=== PATIENT | female | born 1945 | race Caucasian/White ===

== ENCOUNTER 2025-08-28 18:24 | Inpatient (IN) | payer MEDICARE, OTHER, SELFPAY ==
[2025-08-28] VITALS (18 sets, daily range): BP systolic 90–124; BP diastolic 66–109
[2025-08-28 14:03] LABS: Hematocrit 33.9 % (37.0-47.0); Hemoglobin 11.5 g/dL (12.0-16.0); Mean Corp Hgb Conc. 33.9 g/dL (33.0-37.0); Mean Corpuscular Volume 89.0 fL (81.0-99.0); Nucleated Red Blood Cells % 0 %; Platelet Count 281 10^3/uL (130-400); Red Cell Dist. Width 14.3 % (11.5-14.5)
--- NOTE | 2025-08-28 14:16 | ED.GENMED ---
History of Present Illness
General
Chief Complaint: Chest Pain
Source: patient and ambulance crew
Exam Limitations: none
Time Seen by Provider: 08/28/25 14:16
Nursing documentation reviewed up to this point in time: agreed with
History of Present Illness
History of Present Illness:
Note:
CHIEF COMPLAINT(S)
Sudden chest pain.
HISTORY OF PRESENT ILLNESS
The patient is an 80-year-old female who presents with sudden onset chest pain. The exact time of onset was not specified prior to the patients arrival in the emergency department. The patient has a history of atrial fibrillation and is currently
taking apixaban (Eliquis) for anticoagulation. She reported no history of stenting or catheterization, although she mentioned undergoing a calcium score previously. She denies any known history of blood clots. However, artist manager surmised that a blood
clot might have caused the chest pain, although there is no clinical confirmation of this. The patient mentioned undergoing knee replacement surgery in the past and is currently taking an antibiotic, nitrofurantoin (Macrobid), for a urinary tract
infection. She has been on Macrobid for approximately three to four days. A prior evaluation indicated elevated white blood cell count, possibly linked to the urinary tract infection.
PAST MEDICAL AND SURGICAL HISTORY
The patient underwent knee replacement surgery, although the specific timing and further surgical history were not detailed.
CHRONIC MEDICAL CONDITIONS SIGNIFICANTLY AFFECTING CARE
- Atrial fibrillation
MEDICATIONS
- Apixaban (Eliquis) for atrial fibrillation
- Nitrofurantoin (Macrobid) for urinary tract infection
REVIEW OF SYSTEMS
- Cardiovascular: Sudden chest pain
- Genitourinary: History of urinary tract infection, on nitrofurantoin (Macrobid), previously elevated white blood cell count
PHYSICAL EXAM
General: Alert, no acute distress.
Skin: Warm, dry.
Head: Normocephalic, atraumatic.
Neck: Supple, trachea midline.
Eyes, Ears, Nose, Mouth and Throat: Oral mucosa moist.
Cardiovascular: Normal peripheral perfusion, No edema.
Respiratory: Respirations are non-labored.
Gastrointestinal: Abdomen nondistended.
Back: Normal range of motion, Normal alignment.
Musculoskeletal: Normal range of motion, normal strength.
Neurological: Alert and oriented to person, place, time, and situation, No focal neurological deficit observed.
Psychiatric: Cooperative, appropriate mood & affect.
PROBLEM LIST
Acute:
- Sudden chest pain
- Urinary tract infection
- Elevated white blood cell count
Chronic:
- Atrial fibrillation
PLAN
- Perform blood work, including a troponin level, to assess cardiac status.
- Conduct a chest X-ray to evaluate potential cardiac or pulmonary causes of chest pain.
- Administer medication to control the patient�s heart rate concerning atrial fibrillation.
- Complete an ultrasound of the leg to check for potential deep vein thrombosis, especially given the knee replacement history.
- Consider hospital admission for further observation and management of atrial fibrillation and to rule out other potential causes of chest pain.
DIFFERENTIAL DIAGNOSIS
The Differential Diagnosis includes, in no particular order and is not limited to:
- Myocardial infarction
- Pulmonary embolism
- Atrial fibrillation with rapid ventricular response
- Costochondritis
- Musculoskeletal chest pain
- Pneumonia
- Pleuritis
- Anxiety-related chest pain
- Gastroesophageal reflux disease (GERD)
- Pericarditis
EKG
My independent EKG interpretation is:
- Time of EKAugust 28, 2025
- Rhythm: Atrial fibrillation with rapid ventricular response
- Heart Rate: 132 bpm
- White: Left axis deviation
- Abnormalities: T wave abnormality in inferior leads
Disposition:
SUMMARY OF ENCOUNTER
The patient was seen in the emergency department for sudden onset chest pain. Initial evaluation suggested rapid atrial fibrillation and left lower lobe pneumonia with mild troponin elevation. Atrial fibrillation was diagnosed with independent EKG
showing rapid ventricular response. Initially, heparin was considered for anticoagulation but was held due to the patients report of rectal bleeding. Antibiotic treatment was started with ceftriaxone (Rocephin) and azithromycin in accordance with
pneumonia management guidelines. Diltiazem drip was initiated for rate control of rapid atrial fibrillation. The hospitalist was consulted for further inpatient management.
DISPOSITION
Admit for further observation and management.
ASSESSMENT
The patient is experiencing rapid atrial fibrillation and left lower lobe pneumonia, which requires hospitalization for further management and observation due to potential complications related to elevated troponin levels and patients age.
EMERGENCY TREATMENTS ADMINISTERED
- Ceftriaxone (Rocephin)
- Azithromycin
- Diltiazem drip for rapid atrial fibrillation rate control
MANAGEMENT OF THE PATIENTS CARE WAS DISCUSSED WITH
The hospitalist team was consulted to manage the patients care upon admission to the hospital.
PLAN
Admit to the hospital for ongoing management of rapid atrial fibrillation and left lower lobe pneumonia. Continue monitoring troponin levels and potential bleeding risk before initiating anticoagulation therapy. Administer appropriate antibiotics
and maintain vital stability.
INDEPENDENT REVIEW OF LABS AND INTERPRETATION OF TESTS
My independent EKG interpretation is atrial fibrillation with rapid ventricular response, elevated heart rate of 132 bpm, left axis deviation, and T wave abnormality in inferior leads.
MEDICATION RECONCILIATION
- Heparin was considered but withheld due to patient-reported rectal bleeding.
MEDICAL DECISION MAKING
- Chronic conditions affecting care: Atrial fibrillation, Elevated troponin.
- Differential Diagnosis includes:
- Myocardial infarction
- Pulmonary embolism
- Atrial fibrillation with rapid ventricular response
- Pneumonia
- Data:
- Category 1: My independent EKG interpretation.
- Category 3: Management of care discussed with the hospitalist.
- Risk: Consideration of Admission/Observation due to atrial fibrillation, elevated troponin, and pneumonia. Admission was necessary due to the complexity of the present conditions and the potential risk for complications.
DIAGNOSIS
- I48.91: Unspecified atrial fibrillation
- J18.9: Pneumonia, unspecified organism
Phy Exam
Physical Exam
Physical Exam:
.
Scores
Heart Score for Chest Pain Patients
STEMI patient?: No
History: Slightly or Non-Suspicious
ECG: Nonspecific Repolarization
Age: >/= 65 years
Risk Factors: 1 or 2 Risk Factors
Troponin: >1 - <3 x Normal Limit
Heart Score for Chest Pain Patients: 5
Heart Score Risk: 20.3% MACE over next 6 weeks
Course
Orders/Labs/Results
Orders:
Orders
08/28/25 13:44
Electrocardiogram (*1) Urgent
Reason for Study: Chest Pain
EKG- Treatment ONCE
08/28/25 13:53
Complete Blood Count/With Diff Urgent
Comprehensive Metabolic Panel Urgent
Troponin I Urgent
08/28/25 14:35
Diltiazem 125 mg/125 ml Nss [Cardizem] 125 mg in 125 ml IV NOW
Initial dose in mg/hr, then titrate:: 5
Titrate to keep:: Heart rate 80-100 bpm
Titrate by mg/hr:: 5 mg/hr
Frequency of titrations (minutes):: 15
Maximum dose in mg/hr:: 15
Diltiazem HCl [Cardizem] 5 mg IV NOW STA
08/28/25 14:37
CR Chest Portable - 1 View Urgent
Comment:
Reason For Exam: chest pain
Reason Study Needs to be Portable: Patient Unstable
08/28/25 14:41
US Legs, Right [US Periph Venous LOWER Ext RT] Urgent
Comment:
Reason For Exam: right leg swelling, recent knee surgery
08/28/25 Dinner
Regular
08/28/25 15:29
D-Dimer Urgent
PTT Urgent
Prothrombin Time Urgent
08/28/25 16:09
CT Chest PE Study Urgent
Comment:
Reason For Exam: chest pain, ddimer elevated
08/28/25 17:12
Heparin 4,000 units IV NOW STA
Nursing to Place Non Medication Order As Directed
Physician Order: PTT 6 hours after initial start of Heparin infusion
08/28/25 17:51
UA Reflex to Culture [Urinalysis Reflex To Culture] Routine
08/28/25 17:52
Admit/Transfer Patient As Directed
Co-Sign Provider:
Level of Care: Inpatient admission
Assign to:: IVU
Physician / Group: Bryce
Diagnosis: New afib with chest pain;possible pneumonia
Reason for Hospitalization: See progress note
Expected length of stay greater than two midnights?: Yes
ELOS- Estimated Length of Stay in days: 4
I certify the patient meets the requirements for IP care: Yes
PRN Pain Medication Management As Directed
May give lesser potent ordered pain med per pt: Yes
preference::
Protocol:: Medication orders for pain may be administered in a
manner that supports deferring to patient preference
when the pt is:
- Requesting an ordered lesser potent pain medication.
Least to most potent pain medications are defined
as: acetaminophen < NSAID < tramadol < opioids
(morphine, oxycodone, hydromorphone).
- Requesting a lesser dose of the same medication IF
ORDERED.
- Requesting a less intrusive route of administration
if both routes are prescribed by the provider (PO <
IV).
08/28/25 17:54
Code Status As Directed
Resuscitation Status: Full Code
08/28/25 18:08
COVID-19 Antigen Routine
Source: Nasal Swab
Blood Culture Q30M
Source: Blood/Venous
Specimen Description:
Influenza A+B Rapid Molecular Routine
Source: Nasal Swab
Specimen Description:
08/28/25 18:30
Blood Culture Q30M
Source: Blood/Venous
Specimen Description:
08/28/25 20:00
CefTRIAXone [Rocephin] 1,000 mg IV Q24H
08/28/25 20:25
Acetaminophen [Tylenol] 650 mg PO Q4HPRN PRN
Bisacodyl [Dulcolax] 10 mg RECTAL DAILY PRN constipation
Diltiazem 125 mg/125 ml Nss [Cardizem] 125 mg in 125 ml IV PER PROTOCOL
Currently infusing. Continue current dose and titrate:: Yes
Titrate to keep:: Heart rate 80-100 bpm
Titrate by mg/hr:: 5 mg/hr
Frequency of titrations (minutes):: 15
Maximum dose in mg/hr:: 15
Doxycycline [Vibramycin] 100 mg PO Q12
Oxycodone [Roxicodone] 5 mg PO Q4H PRN moderate pain moderate pain
Polyethylene Glycol Powder [Miralax] 17 grams PO DAILY PRN constipation
Sennosides [Senokot] 8.6 mg PO BID
08/28/25 20:25
Echo 2D MMode Color/Doppler Routine
Reason for Study: New Afib
CARDIOLOGY CONSULT Routine
Consulting Provider: Adilene Robertson
Was physician already notified: Yes
Reason for consult: Afib
Urine Osmolality Random [Osmolality, Random Urine] Routine
Urine Sodium Routine
Heparin Protocol- PTT Orders As Directed
PTT per Heparin protocol: -Obtain CBC and baseline PTT - if not already collected.
-Obtain PTT 6 hours from start of infusion. Then, every 6 hours until 2 consecutive
PTT's are therapeutic. Then, PTT Daily.
-With each rate change, obtain PTT every 6 hours until 2 consecutive PTT's are
therapeutic. Then, PTT Daily.
Activity As Directed
Activity Level: As Tolerated
Notify MD As Directed
Notify physician if: PTT is greater than or equal to 200.
Ot Eval And Treat Routine
Pt Eval And Treat Routine
Activity Level: As Tolerated
08/29/25 06:00
TSH IN AM
08/29/25 08:00
Oxybutynin Chloride [Ditropan] 5 mg PO DAILY
08/30/25 06:00
Complete Blood Count/No Diff Q2D
Comment: notify provider: Platelet count < 130,000 or decrease by 50% from baseline
09/01/25 06:00
Complete Blood Count/No Diff Q2D
Comment: notify provider: Platelet count < 130,000 or decrease by 50% from baseline
09/03/25 06:00
Complete Blood Count/No Diff Q2D
Comment: notify provider: Platelet count < 130,000 or decrease by 50% from baseline
09/05/25 06:00
Complete Blood Count/No Diff Q2D
Comment: notify provider: Platelet count < 130,000 or decrease by 50% from baseline
09/07/25 06:00
Complete Blood Count/No Diff Q2D
Comment: notify provider: Platelet count < 130,000 or decrease by 50% from baseline
09/09/25 06:00
Complete Blood Count/No Diff Q2D
Comment: notify provider: Platelet count < 130,000 or decrease by 50% from baseline
09/11/25 06:00
Complete Blood Count/No Diff Q2D
Comment: notify provider: Platelet count < 130,000 or decrease by 50% from baseline
09/13/25 06:00
Complete Blood Count/No Diff Q2D
Comment: notify provider: Platelet count < 130,000 or decrease by 50% from baseline
Abnormal Lab Results
08/28/25 08/28/25
13:53 15:29
RBC 3.81 L 10^6/uL
(4.20-5.40)
Hgb 11.5 L g/dL
(12.0-16.0)
Hct 33.9 L %
(37.0-47.0)
Abs Immat Gran (auto) 0.1 H 10^3/uL
(0-0.05)
Absolute Neuts (auto) 8.8 H 10^3/uL
(1.4-6.5)
Absolute Lymphs (auto) 0.6 L 10^3/uL
(1.2-3.4)
Absolute Monos (auto) 1.0 H 10^3/uL
(0.1-0.6)
Immature Gran % 1.0 H %
(0-0.5)
Neutrophils % 83.2 H %
(42.2-75.2)
Lymphocytes % 5.6 L %
(20.5-51.1)
PT 18.9 H Sec
(11.4-14.6)
APTT 56.0 H Sec
(23.4-35.0)
D-Dimer 1.70 H ug/mlFEU
(0.00-0.50)
Sodium 130 L mmol/L
(135-145)
Glucose 121 H mg/dl
(70-99)
Troponin I 0.161 H* ng/ml
Total Protein 5.7 L g/dl
(6.3-8.2)
Albumin 3.1 L g/dl
(3.5-5.0)
08/28/25 13:53
08/28/25 13:53
Vital Signs
Initial and Last Documented VS:
Initial Vital Signs
Temp Pulse Resp BP Pulse Ox
97.5 F 155 20 124/109 98
08/28/25 13:44 08/28/25 13:44 08/28/25 13:44 08/28/25 13:44 08/28/25 13:44
Last Documented Vital Signs
Temp Pulse Resp BP Pulse Ox
98.3 F 88 20 110/72 98
08/28/25 20:20 08/28/25 22:15 08/28/25 20:20 08/28/25 22:00 08/28/25 20:45
*Pulse Oximetry
SaO2: 98
Oxygen Mode of Delivery: Room air
Patient hypoxic: no
*Critical Care Note
Total Time (30-74mins, 75-104mins- exclusive of procedures): 35
comment:
Critical care statement: A total of 35 minutes of critical care time was provided for this patient. This includes management of unstable vital signs, evaluation of the patient at bedside, reviewing the patient's pertinent medical records, discussion
with consultants, review of old EKGs and review of pertinent medical records. This time with separate from time utilized to perform the aforementioned documented procedures
ED Attending Note
-
Portions of this chart may have been created with voice recognition software.� Occasional wrong word or��sound alike� substitutions may have occurred due to the inherent limitations of voice recognition software.
Discharge Plan
Departure
Patient Disposition: Admit
Date of Disposition: 08/28/25
Time of Disposition: 17:11
Admit to: IVU
Presentation/result/management discussed w/ accepting MD/DO: Hospitalist
Patient with high blood pressure during this ER visit?: No
Condition: Fair
Discharge Problem:
Atrial fibrillation with rapid ventricular response, Pneumonia
Interventions
Interventions:
*Risk Screen - Suicide Last Done: 08/28/25 13:44
*General Assessment Last Done: 08/28/25 13:44
*Neglect/Abuse Screening Last Done: 08/28/25 13:44
*ED COVID-19 Vaccine History Last Done: 08/28/25 14:02
*ED Influenza Vaccine History Last Done: 08/28/25 14:02
*Nursing Disposition Last Done: 08/28/25 20:00
ED- Cardiac Assessment Last Done: 08/28/25 14:02
Discharge Date and Time
Discharge Date/Time: 08/28/25 20:03
[2025-08-28 14:30] LABS: Troponin I 0.161 ng/ml
[2025-08-28 14:37] LABS: ALT (SGPT) 21 U/L (0-35); AST (SGOT) 23 U/L (14-36); Albumin 3.1 g/dl (3.5-5.0); Alkaline Phosphatase 77 U/L (38-126); Blood Urea Nitrogen 15 mg/dl (7-17); Calcium 8.6 mg/dl (8.4-10.2); Carbon Dioxide 24 mmol/L (22-30); Chloride 99 mmol/L (98-107); Estimated Creatinine Clearance 79 ml/min; Glucose 121 mg/dl (70-99); Potassium 3.9 mmol/L (3.5-5.1); Sodium 130 mmol/L (135-145); Total Protein 5.7 g/dl (6.3-8.2); eGFR > 60.00
[2025-08-28] MEDS: CARDIZEM 5 MG IV (15:35)
[2025-08-28] MEDS: CARDIZEM 125 IV (15:44)
[2025-08-28 15:45] LABS: INR 1.56; PT 18.9 Sec (11.4-14.6)
[2025-08-28 15:46] LABS: APTT 56.0 Sec (23.4-35.0)
[2025-08-28 15:49] LABS: D-Dimer 1.70 ug/mlFEU (0.00-0.50)
--- NOTE | 2025-08-28 17:59 | HPS.HSE ---
Family Physician
-
Family Physician: Arvin Yoon
Chief Complaint
-
Chest pain and shortness of breath
History of Present Illness
First visit to [facility]. She normally is healthy and does not go to hospitals.
She had a routine a right knee replacement on July 22 at [facility]. She needed a 5-day stay and then was discharged to rehab. She denies any postop complications of infection or any new acute medical issues.
She was cleared by cardiology prior to any replacement. She apparently had a high calcium score which led to echo, EKG and a stress test and then ultimately as cardiac cath a year and half ago and apparently did not need any interventions and was
told it was okay.
she had a chest pain a week or so ago but dissipated quickly but today today when she went to the bathroom to get washed up she had half an hour of left-sided chest pain where she felt short of breath and she had sweating with it. Nursing at the
rehab found her to be an irregular heartbeat sent here and we discovered she has new A-fib.
She denies any further chest pain. It was not pleuritic in nature.
In the middle of the week she felt very cold shaky and thought she had a fever. Rehab checked a urinalysis and she was told she has a UTI and was started on nitrofurantoin. She did not says she had dysuria but she had some frequency. She was put
on diapers and sometimes she is in her own urine for a while before she gets help. No prior history of UTI.
She also says in the last 2 to 3 days she was having cough and she thought she was having phlegm. No history of chronic lung disease. Denies any pneumonia history. She was sharing a room with another patient in the rehab. She can tell if her
roommate had any respiratory symptoms.
Medical History
Past Medical History
Past Medical History: Reports HTN
Past Surgical History: Reports Orthopedic (Right knee replacement last month)
Social History
Tobacco: Non-smoker
Alcohol: None
Drug: None
Living: Other (In rehab currently)
Family History
Family History: Not pertinent
Allergies / Home Medications
Allergies reflects when Allergies were last updated in [employer].
Home Medications with original date entered in [employer]
Allergy/Medication List:
Allergies
Allergy/AdvReac Type Severity Reaction Status Date / Time
No Known Allergies Allergy Verified 08/28/25 15:24
Home Medications
acetaminophen 500 mg tablet 1,000 mg PO TID 08/28/25
apixaban 2.5 mg tablet (Eliquis) 2.5 mg PO BID 08/28/25
bisacodyl 10 mg rectal suppository (Dulcolax (bisacodyl)) 10 mg AR DAILY PRN constipation 08/28/25
methocarbamol 500 mg tablet 500 mg PO Q8H PRN muscle spasms 08/28/25
nitrofurantoin monohydrate/macrocrystals 100 mg capsule (Macrobid) 100 mg PO BID 08/28/25
oxybutynin chloride 5 mg tablet 5 mg PO DAILY 08/28/25
oxycodone 5 mg tablet 5 mg PO Q4H PRN pain 08/28/25
polyethylene glycol 3350 17 gram oral powder packet 17 g PO DAILY PRN constipation 08/28/25
sennosides 8.6 mg tablet (senna) 8.6 mg PO BID 08/28/25
Review of Systems
-
A 12 point ROS was completed and negative except as noted: Yes
Physical Exam
Vital Signs
Vital Signs
Temp Pulse Resp BP Pulse Ox
98.0 F 121 18 112/79 96
08/28/25 15:25 08/28/25 15:35 08/28/25 15:25 08/28/25 15:35 08/28/25 15:25
Physical Exam
General: Comfortable
Respiratory: Crackles (Right base), Non Labored Respirations and Decreased Breath Sounds (Left lower zone); No Wheezes or Accessory Resp Muscle Use
Cardiac: S1/S2, Irregular Rhythm and Tachycardia
GI: Soft, Non Tender, Non Distended and Normal Bowel Sounds
Musculoskeletal: No Edema
Neuro: AO x 3 and No Motor Deficits
Psych: Calm; No Confused or Agitated
Laboratory Results
-
08/28/25 13:53
08/28/25 13:53
Laboratory Results
PT 18.9 Sec (11.4-14.6) H 08/28/25 15:29
INR 1.56 08/28/25 15:29
APTT 56.0 Sec (23.4-35.0) H 08/28/25 15:29
Total Bilirubin 1.1 mg/dl (0.2-1.3) 08/28/25 13:53
AST 23 U/L (14-36) 08/28/25 13:53
ALT 21 U/L (0-35) 08/28/25 13:53
Alkaline Phosphatase 77 U/L (38-126) 08/28/25 13:53
Troponin I 0.161 ng/ml H* 08/28/25 13:53
Data Reviewed
-
CT Scan: Report Reviewed by me (CT chest)
Lab Data: Labs Reviewed by me
Impression/Plan
-
Acute onset of chest pain with associated shortness of breath-suspect secondary to new A-fib doubt CAD. She apparently had a cardiac cath a year and half ago. Not known to have diabetes nor hyperlipidemia. Not on statins. Currently asymptomatic.
Trend troponins.
New onset of atrial fibrillation. She has a history of hypertension otherwise no chronic medical issues. She had recent right knee replacement. Today chest CT showed no evidence of PE but she has infective symptoms and is on antibiotics for UTI.
She also has left lower lobe consolidation and respiratory symptoms raising concern for possible pneumonia. Infectious etiology may be a trigger of A-fib.
- Start on IV Cardizem
- Switch her to Eliquis prophylaxis dose IV heparin
- Check TSH
- Check echocardiogram
- Consult cardiology
Left lower lobe consolidation-patient is recent issues with feeling cold chilly and cough with productive phlegm. Check COVID and flu. Check blood cultures.
Start on empirical antibiotics with ceftriaxone and doxycycline and follow clinical progress.
Recent UTI-currently on nitrofurantoin which I would hold. Repeat UA with culture.
Hyponatremia
Patient remains euvolemic but she feels thirsty. She was also put on IV fluids at rehab apparently.
Check urine sodium and osmolality and follow sodium closely.
History of essential hypertension-recently was put on amlodipine 2.5 mg daily. Will hold that while she is on IV Cardizem.
Recent right knee replacement
PT OT eval
Full code
[2025-08-28 18:54] LABS: COVID-19 Antigen Negative (Negative)
--- NOTE | 2025-08-28 19:22 | EDRN ---
this [employer] placed an external purewick on this pt per the pts request. the pt was noted to have a small amount of red blood in her diaper from home. the pt stated she has been having bright red rectal bleeding since yesterday. the pt takes Eliquis
post right knee surgery. admitting Hospitalist Dr Wu was notified of above. Per admitting hospitalist Dr Wu verbal order, DO NOT GIVE ordered Heparin.
--- NOTE | 2025-08-28 19:39 | EDRN ---
[facility] ROCKY Ford is present at this pts bedside. Per ROCKY Ford verbal order at this pts bedside, DO NOT GIVE ORDERED HEPARIN.
--- NOTE | 2025-08-28 20:24 | W.PN.UPDATE ---
Update Note
Progress Note Update
Asked to see patient due to issue with rectal bleeding in past. She has history of anal fissures and hemorrhoids. She was at rehab post right knee replacement on July 22 and found herself constipated needing suppository on two occasions. She had
a large 'explosion' of bm which she noted to have red blood in water but no clots. Heparin infusion ordered is placed on hold for now. heme test at beside was +. She denies any issues gynecologically. Her CP has subsided since this morning.
[2025-08-28] MEDS: SENOKOT 8.6 MG PO (20:52)
[2025-08-28] MEDS: VIBRAMYCIN 100 MG PO (20:52)
[2025-08-28] MEDS: STERILE WATER FOR INJECTION 10 ML IV (20:52)
[2025-08-28] MEDS: ROCEPHIN 1000 MG IV (20:52)
[2025-08-28] MEDS: TYLENOL 650 MG PO (20:52)
[2025-08-29] VITALS (10 sets, daily range): BP systolic 107–130; BP diastolic 68–84; PULSE 79–82; O2SAT 96–97; BMI 25.7
[2025-08-29 00:37] LABS: Urine Character Clear (Clear)
[2025-08-29 01:04] LABS: Urine Squamous Cell >30 /LPF (Few)
[2025-08-29 01:06] LABS: Urine White Cell 16-20 /HPF (0-5)
[2025-08-29 04:02] LABS: Hematocrit 31.2 % (37.0-47.0); Hemoglobin 10.8 g/dL (12.0-16.0)
--- NOTE | 2025-08-29 04:16 | PTCARENOTE ---
Received pt into room 2256 from ED RN at approx 2009 via stretcher. Tele applied to pt, Afib rhythm, HR 90's-110's. Cardizem gtt infusing per protocol. Admission questions and assessment completed. Afib packet and education given. pt requesting
Tylenol for 3/10 R hip aching pain, administered per pt request with relief. pt oriented to room and call nelson, encouraged pt to call RN for assistance ambulating and/or with any questions/concerns. Call nelson within reach.
~2145 pt requesting Xanax for anxiety. One time order obtained from [facility]. pt then refused dose, and reporting no longer being anxious.
~2200 pt converted to SR. EKG obtained and reads SR w/ 1st degree AVB. HR 70's-80's. Sobeida Ford, RONAK made aware. Instructed RN to keep Cardizem infusing but decrease to 5mg/hr.
~0220 pt HR in 60's, [facility] instructed RN to decrease Cardizem gtt to 2.5mg/hr, infusing per order.
[2025-08-29 04:37] LABS: Troponin I 0.153 ng/ml
[2025-08-29 04:56] LABS: TSH 0.99 uIU/ml (0.47-4.68)
--- NOTE | 2025-08-29 07:59 | CON.GI ---
Addendum entered and electronically signed by ROCKY Nielson 09/01/25 11:33:
correction to below consult request 08/29/25 at 0224 and complete 08/29/25 at 0800
Addendum entered and electronically signed by Familia Tamyao DO 08/29/25 10:17:
I saw and examined the patient.
The [employer]'s note was reviewed and I agree with the note.
Comment: Ms. Kessler is a 80 y.o female with a past medical history of HTN, gluten-intolerance, known hemorrhoids/fissure and recent R TKR (07/22/25, on eliquis for a/c) who presented to the ED with chest pain and found to have new-onset A FIb. On
admission she was found to have hyponatremia and elevated troponin along with concern for a LLL consolidation as well on imaging. She was started on empiric IV abx and admitted to medicine. However, overnight she had a large brown bowel movement
with small amount of bright red blood. Patient notes she's had painless, intermittent rectal bleeding in the past. Does note constipation while she was at rehab and occasional straining as well despite taking senna, miralax and suppositories.
Otherwise, she denied any abdominal pain or large volume bloody stools. No other NSAIDs and her a/c was currently held given her rectal bleeding. Also notes a recent colonoscopy which was reportedly unremarkable at [facility] [place] about one year ago (no
records regarding this). On exam, she was found to have a non-thrombosed hemorrhoid on exam and suspicious for hemorrhoidal related bleeding. She does note previous constipation but much less likely stercoral colitis and/or stercoral induced
ulceration versus AVMs. Much less likely diverticular hemorrhage given her bleeding. Doubt malignancy given her recent colonoscopy 1 year ago. Slight drift in Hgb but otherwise without further bloody bowel movements this AM with brown stool on exam.
Currently, her a/c is on hold and favor monitoring for 24 hrs while holding a/c in case of rebleeding while treating her underlying constipation. Will attempt to obtain a copy of her prior colonoscopy report at [facility]. Otherwise, patient prefers
to avoid a repeat colonoscopy at this time which is reasonable given her prior/recent colonoscopy, however would reconsider pending her clinical course. Favor conservative management and trending serial H/h while monitoring for signs of re-bleeding.
If evidence of large volume hematochezia, would consider stat CTA in attempts of localization if not related to hemorrhoidal bleed but again less likely. Agree with ongoing bowel regimen and Anusol suppositories PRN. See rest of care as outlined
below.
Discussed with primary internal medicine team. GI will continue to follow, please call with any questions or concerns.
Original Note:
Consultation
-
Date/Time Consultation Requested: 09/05/25 0200
Date/Time Consultation Performed: 09/05/25 0800
Requesting Provider: ROCKY Fagan
Performing Provider: ROCKY Turcios Bryan Stone, DO
Reason for Consultation: GI bleed
Medical History
Chief Complaint / HPI
Chief Complaint: rectal bleeding
History of Present Illness:
Pt is a 80yo with hx gluten intolerance,HTN, hemorrhoids, anal fissure with recent Right TKR 07/22 at [facility] with use of Eliquis post -op. She had a several day stay then went to rehab and now noted with new afib . She was also started on
Nitrofurantoin for UTI. On admission noted with hyponatremia, increased troponin but now noted with rectal bleeding and asked to see. In review with patient she admits to occasional rectal bleeding about 10 times in her life with hx hemorrhoids
and fissure in past with prior constipation. She controls her constipation with use of psyllium daily with daily stools prior to knee surgery. She also admits to change on diet last year with bout of diarrhea that improved after diet change. She
states on 08/17 she say a drop of blood with stool then on 08/28 she was having BM and has been taking Senna, miralax and suppository as needed and noted some brown stool with blood about several tablespoon and increased heart rate issues prompting
ER eval. On admission noted with Afib but Anticoagulation was hold with bleeding. hbg on admission was 11.5 then 10.8.
She admits to recent nausea with diet she was taking at SNF but denies odynophagia, dysphagia, GERD, vomiting, abdominal pain, or black stools. No recent NSAID use. Last colonoscopy with Dr. Puentes at [facility] about 1 year ago.
Past Medical History
Past Medical History: Other (gluten intolerance )
Past Surgical History: Orthopedic (right knee replacement )
Social History
Tobacco: Former Smoker (quit 1987)
Alcohol: None
Drug: None
Living: Other (was in Rehab prior to admission)
Employment: Retired
Family History
Family History: Other (father with hx ETOH abuse and perforated colon with ostomy)
Allergies / Home Medications
Allergy/AdvReac Type Severity Reaction Status Date / Time
No Known Allergies Allergy Verified 08/28/25 15:24
�Medication �Instructions �Recorded
acetaminophen 500 mg tablet 1,000 mg PO TID Pain 08/28/25
apixaban 2.5 mg tablet (Eliquis) 2.5 mg PO BID Blood Clot 08/28/25
Prevention/Tx
bisacodyl 10 mg rectal suppository 10 mg [place] DAILY PRN constipation 08/28/25
(Dulcolax (bisacodyl))
methocarbamol 500 mg tablet 500 mg PO Q8H PRN muscle spasms 08/28/25
nitrofurantoin 100 mg PO BID Infection 08/28/25
monohydrate/macrocrystals 100 mg
capsule (Macrobid)
oxybutynin chloride 5 mg tablet 5 mg PO DAILY Urinary Issue 08/28/25
oxycodone 5 mg tablet 5 mg PO Q4H PRN pain 08/28/25
polyethylene glycol 3350 17 gram 17 g PO DAILY PRN constipation 08/28/25
oral powder packet
sennosides 8.6 mg tablet (senna) 8.6 mg PO BID Constipation 08/28/25
Review of Systems
-
History Source: Patient and Family
Constitutional: Reports No Symptoms
EENT: Reports No Symptoms
Respiratory: Reports No Symptoms
Cardiac: Reports No Symptoms
Abdomen/GI: Reports Nausea, Constipated and Bloody Stools
: Reports No Symptoms
Musculoskeletal: Reports No Symptoms
Skin: Reports No Symptoms
Neurological: Reports Weakness
Endocrine: Reports No Symptoms
Hematologic/Lymphatic: Reports Bleeding
Vital Signs
Temp Pulse Resp BP Pulse Ox
98.4 F 65 20 107/72 98
08/29/25 06:53 08/29/25 06:00 08/29/25 06:53 08/29/25 03:14 08/29/25 06:53
Physical Exam
Exam
General: Well Developed, Well Nourished and No Apparent Distress
HEENT: Normocephalic and Anicteric
Respiratory: Clear
Cardiac: Regular Rhythm
GI: Soft, Non Tender and Non Distended
Rectal: Brown, Hem Positive (trace +) and Hemorrhoids (small hemorroid no bleeding noted )
Musculoskeletal: No Clubbing and No Cyanosis
Skin: Warm and Dry
Neuro: Awake, Alert and AO x 3
Psych: Calm
Results
WBC 10.5 10^3/uL (4.8-10.8) 08/28/25 13:53
Hgb 10.8 g/dL (12.0-16.0) L 08/29/25 03:25
Hct 31.2 % (37.0-47.0) L 08/29/25 03:25
MCV 89.0 fL (81.0-99.0) 08/28/25 13:53
Plt Count 281 10^3/uL (130-400) 08/28/25 13:53
Absolute Neuts (auto) 8.8 10^3/uL (1.4-6.5) H 08/28/25 13:53
PT 18.9 Sec (11.4-14.6) H 08/28/25 15:29
INR 1.56 08/28/25 15:29
APTT Cancelled 08/28/25 17:12
Sodium 130 mmol/L (135-145) L 08/28/25 13:53
Potassium 3.9 mmol/L (3.5-5.1) 08/28/25 13:53
Chloride 99 mmol/L (98-107) 08/28/25 13:53
Carbon Dioxide 24 mmol/L (22-30) 08/28/25 13:53
BUN 15 mg/dl (7-17) 08/28/25 13:53
Creatinine 0.6 mg/dL (0.6-1.0) 08/28/25 13:53
Calcium 8.6 mg/dl (8.4-10.2) 08/28/25 13:53
Total Bilirubin 1.1 mg/dl (0.2-1.3) 08/28/25 13:53
AST 23 U/L (14-36) 08/28/25 13:53
ALT 21 U/L (0-35) 08/28/25 13:53
Alkaline Phosphatase 77 U/L (38-126) 08/28/25 13:53
Diagnostic Image Results:
08/28/25 CT Chest PE Study
No evidence of central pulmonary embolism.
Dense left lower lobe consolidation at least in part could represent pneumonia.
Likely tiny bilateral pleural effusions.
08/28/25 US venous LE rt
No evidence of deep venous thrombosis of the right lower extremity.
Complex lesion in the popliteal fossa measuring 4.9 x 2.6 x 3.8 cm without blood flow within most likely representing a complex popliteal cyst. Short-term follow-up ultrasound recommended due to the complex nature.
Prior GI Procedures:
EGD: none
Colonoscopy: last years Dr. Alvarado recalls as stable
Assessment / Plan
-
Pt is a 80yo with hx gluten intolerance,HTN, hemorrhoids, anal fissure with recent Right TKR 07/22 at [facility] with use of Eliquis post -op. She had a several day stay then went to rehab and now noted with new afib . She was also started on
Nitrofurantoin for UTI. On admission noted with hyponatremia, increased troponin but now noted with rectal bleeding and asked to see. In review with patient she admits to occasional rectal bleeding about 10 times in her life with hx hemorrhoids
and fissure in past with prior constipation. She controls her constipation with use of psyllium daily with daily stools prior to knee surgery. She also admits to change on diet last year with bout of diarrhea that improved after diet change. She
states on 08/17 she say a drop of blood with stool then on 08/28 she was having BM and has been taking Senna, miralax and suppository as needed and noted some brown stool with blood about several tablespoon and increased heart rate issues prompting
ER eval. On admission noted with Afib but Anticoagulation was hold with bleeding. hbg on admission was 11.5 then 10.8. She admits to recent nausea with diet she was taking at [facility].No recent NSAID use. Last colonoscopy with Dr. Puentes at .
[facility] about 1 year ago.
-rectal bleeding- bright red blood per rectum -small hemorrhoid on exam
-mild anemia
-hx chronic constipation
-new onset a fib
-recent TKR
-increased trop
-hyponatremia
other med problems:
-gluten intolerance
-HTN
- anal fissure
PLAN:
etiology of bleeding related to hemorrhoids with recent constipation post-op vs other
current rectal with brown stool and small hemorrhoids trace +
cont regular diet
trend hbg
obtain recent colonoscopy report done without last year
ok for anticoagulation with close watch of stools for recurrent bleeding
cont senna daily with Miralax PRN
add anusol -PRN -- pt prefers to hold for now but will use if bleeding or irritation from hemorrhoids
-
-
Thank you for consultation and allowing me to participate in the patient's care. Please call the data migration lead GI physician during the after hours with any questions or concerns.
[2025-08-29] MEDS: VIBRAMYCIN 100 MG PO ×2 (08:17→20:20)
[2025-08-29] MEDS: SENOKOT 8.6 MG PO ×2 (08:17→20:20)
[2025-08-29] MEDS: DITROPAN 5 MG PO (08:17)
--- NOTE | 2025-08-29 10:26 | CON.CAR ---
Addendum entered and electronically signed by Quinten Alvarado MD 08/29/25 12:40:
I saw and examined the patient.
The [employer]IM[employer] or PA's note was reviewed and I agree with the note.
Comment: General: Well developed, well nourished in NAD.
Neck: Supple, no JVD, HJR, carotids +2 B/L, no bruits bilaterally.
Heart: Non displaced PMI, RRR, no murmurs, No S3, S4, no rubs.
Lungs: Clear to auscultation bilaterally, no wheeze, rhonchi, rubs bilaterally,
normal expiratory phase.
Extremities: No clubbing, cyanosis or edema bilaterally.
Neuro: Grossly nonfocal, awake, alert and oriented x3.
Bettie has a history of nonobstructive CAD. She presented with chest pain and palpitations and new onset A-fib. She has spontaneously converted to sinus rhythm. Will add amiodarone and attempt to keep in sinus rhythm. Will start IV heparin and
will consider anticoagulation with Eliquis depending on hemoglobin and if further GI bleeding. Troponin elevation likely non-NC ischemic injury. Check echocardiogram
Original Note:
Consultation
Consultation Request
Date/Time Consultation Requested: 08/28/2025 at 2025
Date/Time Consultation Performed: 08/29/2025 at 1027
Requesting Provider: Dr. Villa
Performing Provider: Dr. Alvarado
Reason for Consultation: Chest pain and new A-fib
Medical History
-
History of Present Illness:
Patient came to [facility] ER yesterday with chest pain and palpitations and was admitted with newly diagnosed Afib with RVR and cardiology has been consulted. Patient had planned right TKA on 07/27/2025 and PT evaluation prior to discharge to home
indicated that she required a rehab stay so she was transferred to the [facility] and has been there since approximately 08/01/2025. Patient reports that she had been making progress, but that progress slowed over the last week, she is only able to walk
200 steps at a time. Patient had 2 episodes over the last week of fleeting chest pressure and palpitations and then after a PT session yesterday she had chest pain, SOB and racing heart palpitations that prompted ER evaluation. Patient was found
to be newly diagnosed atrial fibrillation with RVR and was started on Cardizem gtt. patient spontaneously converted to SR late last night and remains in SR this morning, but is having episodes of 10-12 beats of atrial arrhythmia that seem to be
asymptomatic during my observation of telemetry at the time of cardiology consultation. No known history of A-fib. Patient was taking Eliquis 2.5 mg BID following surgery for DVT prophylaxis, but otherwise has not been on OAC. Patient has a
history of bright red blood per rectum due to fissures and hemorrhoids, her last colonoscopy was at [facility] a year ago and she noticed some blood in the toilet intermittently over the last week at rehab related to constipation and because of this
heparin gtt was not started overnight.
PMH:
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
Nonobstructive CAD with 30 to 40% RCA lesion by cardiac cath at [facility] 12/18/2023
Past Medical History
Past Medical History: Other (In HPI)
Past Surgical History: Gynecological (Hysterectomy) and Orthopedic (Right TKA 07/27/2025)
Social History
Tobacco: Non-Smoker
Alcohol: None
Drug: None
Personal: Single
Living: Other (Previously living independently, now in rehab at the [facility] following TKA, planning to return to independent living following rehab)
Family History
Family History: Diabetes
Allergies / Home Medications
Allergy/AdvReac Type Severity Reaction Status Date / Time
No Known Allergies Allergy Verified 08/28/25 15:24
�Medication �Instructions �Recorded �Confirmed �Type
acetaminophen 500 mg tablet 1,000 mg PO TID Pain 08/28/25 08/28/25 History
apixaban 2.5 mg tablet (Eliquis) 2.5 mg PO BID Blood Clot 08/28/25 08/28/25 History
Prevention/Tx
bisacodyl 10 mg rectal suppository 10 mg [place] DAILY PRN constipation 08/28/25 08/28/25 History
(Dulcolax (bisacodyl))
methocarbamol 500 mg tablet 500 mg PO Q8H PRN muscle spasms 08/28/25 08/28/25 History
nitrofurantoin 100 mg PO BID Infection 08/28/25 08/28/25 History
monohydrate/macrocrystals 100 mg
capsule (Macrobid)
oxybutynin chloride 5 mg tablet 5 mg PO DAILY Urinary Issue 08/28/25 08/28/25 History
oxycodone 5 mg tablet 5 mg PO Q4H PRN pain 08/28/25 08/28/25 History
polyethylene glycol 3350 17 gram 17 g PO DAILY PRN constipation 08/28/25 08/28/25 History
oral powder packet
sennosides 8.6 mg tablet (senna) 8.6 mg PO BID Constipation 08/28/25 08/28/25 History
Review of Systems
-
History Source: Patient
All other systems: Negative unless noted
Physical Exam
Vital Signs
Temp Pulse Resp BP Pulse Ox
98.4 F 86 20 114/84 98
08/29/25 06:53 08/29/25 07:00 08/29/25 06:53 08/29/25 06:53 08/29/25 06:53
GEN: NAD, AO x 3
HEENT: EOMI, MMM
LUNGS: RA. CTA B/L, no wheeze
CV: SR on telemetry with 10-12 beat runs of self-limited atrial arrhythmia. Reg with ectopy, S1/S2, no murmur
ABD: ND
EXT: No edema B/L LE
NEURO: Gross non-focal
SKIN: No rash
Lab Results
08/29/25 03:25
08/28/25 13:53
Troponin I 0.153 ng/ml H* 08/29/25 03:25
Impression / Plan
-
PCP: Dr. Yosef Rios
Cardiology: Cardiology provider at [facility]
Impression:
Admitted with chest pain, palpitations and newly diagnosed A-fib 08/28/2025
Chest pain
Elevated troponin
Newly diagnosed paroxysmal atrial fibrillation 08/28/2025 with spontaneous conversion to SR 08/28/2025 late PM
LLL consolidation, possibly PNA
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
Nonobstructive CAD with 30 to 40% RCA lesion by cardiac cath at [facility] 12/18/2023
Lexiscan nuclear stress test 12/10/2023: Positive for ischemia with small to medium reversible defect in the apical to mid lateral locations, EF 71%
Cardiac cath 12/18/2023: [facility] study, noncritical stenosis in a nondominant RCA, 30 to 40% stenosis in the midportion of the RCA, LM free of angiographic disease, circumflex free of any angiographic disease, LAD free of any angiographic disease
Echo 12/05/2023: [facility] study, EF 60 to 65%, no WMA, normal RV size and function, mild to moderate MR
Plan:
-Patient came to [facility] ER yesterday with chest pain and palpitations and was admitted with newly diagnosed Afib with RVR and cardiology has been consulted. Patient had planned right TKA on 07/27/2025 and PT evaluation prior to discharge to home
indicated that she required a rehab stay so she was transferred to the [facility] and has been there since approximately 08/01/2025. Patient reports that she had been making progress, but that progress slowed over the last week, she is only able to walk
200 steps at a time. Patient had 2 episodes over the last week of fleeting chest pressure and palpitations and then after a PT session yesterday she had chest pain, SOB and racing heart palpitations that prompted ER evaluation. Patient was found
to be newly diagnosed atrial fibrillation with RVR and was started on Cardizem gtt. patient spontaneously converted to SR late last night and remains in SR this morning, but is having episodes of 10-12 beats of atrial arrhythmia that seem to be
asymptomatic during my observation of telemetry at the time of cardiology consultation. No known history of A-fib. Patient was taking Eliquis 2.5 mg BID following surgery for DVT prophylaxis, but otherwise has not been on OAC. Patient has a
history of bright red blood per rectum due to fissures and hemorrhoids, her last colonoscopy was at [facility] a year ago and she noticed some blood in the toilet intermittently over the last week at rehab related to constipation and because of this
heparin gtt was not started overnight.
-ECG reviewed by me is A-fib with RVR, telemetry reviewed by me throughout cardiology consultation was SR with brief runs of atrial arrhythmia, seemingly asymptomatic
-Patient with newly diagnosed paroxysmal atrial fibrillation that spontaneously converted to SR with Cardizem gtt. Cardizem gtt currently running at 2.5 mg/hr, will stop now, orders placed by me.
-Start Cardizem CD 120 mg daily now, orders placed by me
-Consider starting AAD with brief paroxysms of atrial arrhythmia seen on telemetry during cardiology consultation, would consider adding amiodarone 400 mg BID
-TSH was normal at 0.99
-Long discussion with patient about rectal bleeding and GI consultation reviewed by me. Cardiology would favor initiation of OAC with appropriately dosed Eliquis 5 mg BID (age 80, Cre 0.6, wt 72.1 kg) and follow for recurrent GI bleeding. Case
reviewed with GI attending and plan will be to start heparin gtt now and if no bleeding overnight start Eliquis on 08/30/2025. Heparin gtt orders placed by me to start now.
-Symptoms of chest pain and palpitations improved dramatically with spontaneous conversion to SR, no recurrence of symptoms despite brief, self-limited paroxysms of atrial arrhythmia.
-Initial troponin 0.161 and trending down thereafter. No acute ischemic changes on ECG. Check echo, order confirmed by me. Pending results will manage as a nonischemic myocardial injury troponin elevation
-As noted above patient had an abnormal Lexiscan nuclear stress test 11/2023 followed by the finding of noncritical stenosis and a nondominant RCA on cardiac cath at [facility] 12/18/2023.
-Patient is being treated with Rocephin and doxycycline for a presumed pneumonia with the finding of a LLL consolidation on CT of the chest.
[2025-08-29] MEDS: TYLENOL 650 MG PO (11:23)
[2025-08-29 12:05] LABS: Troponin I 0.123 ng/ml
--- NOTE | 2025-08-29 12:07 | CM ---
Chart reviewed. Patient is independent of ADLS, recently had a R TKR at [facility] 07/22/25 and was discharged to [facility] SNF, ambulating with a RW. Prior to that patient was independent of ADLS, living alone in a 1 STH, 5 TITO in the front,
4 TITO in the back, grab bars, RW and SPC at home if needed. Patient does not want to go back to [facility]. Patient prefers to go home. Patient's stepdaughter working on finding patient helpers to assist in the home. PT evaluation
recommending SNF. Plan will be to go home with helpers or SNF. CM to follow up with the patient.
--- NOTE | 2025-08-29 12:07 | W.CHA2DS2VAS ---
[id number] Score
Score
Age in Years (65=0, 65-74=1, >/=75=2): > or = 75
Sex (Female=+1): Female
Congestive Heart Failure History (Yes=+1): No
Hypertension History (Yes=+1): No
Stroke/TIA/Thromboembolism History (Yes=+2): No
Vascular Disease History (Yes=+1): No
Diabetes Mellitus (Yes=+1): No
Score >/=2 is otherwise an anticoagulation candidate: 3
[2025-08-29] MEDS: CARDIZEM CD 120 MG PO (12:26)
[2025-08-29 13:19] LABS: APTT 40.5 Sec (23.4-35.0)
[2025-08-29] MEDS: HEPARIN 25000 UNITS/250 ML IV (14:49)
--- NOTE | 2025-08-29 14:55 | W.PN.HOSP.TC ---
Today's Communication/Plan
-
Assessment / Plan
Assessment / Plan
General: No Apparent Distress, Comfortable and Conversant
HEENT: NormoCephalic, Moist mucous membranes, Atraumatic
Respiratory: Clear and Non Labored Respirations
Cardiac: Regular rhythm, heart rate around 70
GI: Soft, Non Tender, Non Distended and Normal Bowel Sounds
Musculoskeletal: No Edema, no deformity
Skin: Warm and dry
: NO Vera
Neuro: Awake, Alert, Nonfocal/grossly intact
Psych: Calm and cooperative
Ms. Kessler is a 80-year-old female with a medical history of hypertension, hemorrhoid, and recent right TKA (07/22/2025, low-dose Eliquis for PPx) who presented with chest pain and shortness of breath. She was found to be in A-fib with RVR which
is a new diagnosis for her. Her heart rate improved with IV Cardizem and ultimately converted to normal sinus rhythm overnight. She was started on full anticoagulation with IV heparin, low-dose postoperative Eliquis was discontinued. Overnight
after admission she developed painless hematochezia and IV heparin was briefly held. Her rectal bleeding is likely due to her known hemorrhoids and has spontaneously resolved. CT imaging showed evidence of left lower lobe pneumonia. Started on
antibiotics. Admitted for further evaluation and management.
A-fib with RVR:
- New diagnosis of A-fib
- Started on IV diltiazem drip, spontaneously converted to normal sinus rhythm overnight
- Continue scheduled diltiazem 120 mg p.o. daily, diltiazem drip discontinued
- Currently anticoagulated with IV heparin, plan to transition to full-strength Eliquis tomorrow 08/30
- Cardiology following
- Echocardiogram pending
- Trigger could be left lower lobe pneumonia, no evidence of PE
Rectal bleeding:
- Likely due to hemorrhoid, spontaneously resolved
- Okay to continue anticoagulation
- GI following, no intervention indicated at this time
- If recurrent large-volume bleeding will pursue CT angiography
Left lower lobe pneumonia:
- CT imaging shows dense consolidation left lower lobe
- Started on antibiotics with ceftriaxone and doxycycline
- Blood cultures growing gram-positive cocci in clusters, will obtain repeat cultures
- Saturating appropriate on room air
DVT prophylaxis: IV heparin
CODE STATUS: Full code
Total time spent on today's encounter was
Anticipated Discharge: 24 - 48 hours
Subjective/Interval History
-
Date of Service: August 29, 2025
Patient was seen and examined at bedside this morning. Currently comfortable. Had an episode of hematochezia overnight which has since resolved. Heart rate currently well-controlled on Cardizem drip.
Objective Data
-
Labs:
Laboratory Results
08/29/25 08/29/25
03:25 12:48
Hgb 10.8 L
Hct 31.2 L
APTT 40.5 H
Vital Signs:
Vital Signs
Temp Pulse Resp BP Pulse Ox
98.7 F 76 20 111/68 98
08/29/25 11:04 08/29/25 12:00 08/29/25 11:04 08/29/25 11:04 08/29/25 11:04
I&O
08/28/25 08/29/25 08/30/25
06:59 06:59 06:59
Intake Total 240 / 240
Output Total 300 / 300
Balance -60 / -60
Review of Systems
-
History Source: Patient
All other systems: Reviewed and negative
Physical Exam
-
General: No Apparent Distress
--- NOTE | 2025-08-29 16:17 | PTCARENOTE ---
Pt received this am in SR, rate in the 70's to 90's. Denies any chest pain or sob. C/o of mild dizziness off and on today. Assisted oob to the chair and tolerated well for several hours. Heparin started as ordered.
[2025-08-29] MEDS: STERILE WATER FOR INJECTION 10 ML IV (20:20)
[2025-08-29] MEDS: ROCEPHIN 1000 MG IV (20:21)
[2025-08-29 21:33] LABS: APTT 60.0 Sec (23.4-35.0)
[2025-08-30] VITALS (16 sets, daily range): BP systolic 109–140; BP diastolic 60–92; PULSE 84–95; O2SAT 98; BMI 26.0
--- NOTE | 2025-08-30 01:22 | PTCARENOTE ---
Received pt at change of shift resting in bed. SR on tele, HR 60's-70's. pt denies any CP or SOB at this time. Heparin gtt infusing per protocol. RT in room to setup pt own CPAP, pt currently wearing for HS. Updated pt on plan of care. Encouraged pt
to call RN for assistance ambulating and/or with any questions or concerns. Call nelson within reach.
[2025-08-30 05:00] LABS: APTT 92.5 Sec (23.4-35.0)
[2025-08-30 05:15] LABS: Blood Urea Nitrogen 16 mg/dl (7-17); Carbon Dioxide 24 mmol/L (22-30); Chloride 104 mmol/L (98-107); Estimated Creatinine Clearance 70 ml/min; Glucose 99 mg/dl (70-99); eGFR > 60.00
[2025-08-30 05:19] LABS: Hematocrit 34.5 % (37.0-47.0); Hemoglobin 11.5 g/dL (12.0-16.0); Mean Corp Hgb Conc. 33.3 g/dL (33.0-37.0); Mean Corpuscular Volume 88.0 fL (81.0-99.0); Platelet Count 398 10^3/uL (130-400); Red Cell Dist. Width 14.8 % (11.5-14.5)
[2025-08-30 05:25] LABS: Calcium 9.3 mg/dl (8.4-10.2); Potassium 3.8 mmol/L (3.5-5.1); Sodium 132 mmol/L (135-145)
--- NOTE | 2025-08-30 06:22 | W.PN.GI.CBS2 ---
Today's Communication / Plan
-
H/h remains stable and suspect hemorrhoid bleed as source of small volume rectal bleeding. Okay to resume a/c and continue to monitor for signs of recurrent bleeding. No plans for a colonoscopy at this time given her recent colonoscopy this past
year. See rest of care as outlined below. GI will sign-off, please re-contact with any questions or concerns.
Assessment / Plan
-
Ms. Kessler is a 80 y.o female with a past medical history of HTN, gluten-intolerance, known hemorrhoids/fissure and recent R TKR (07/22/25, on eliquis for a/c) who presented to the ED with chest pain and found to have new-onset A FIb. On
admission she was found to have hyponatremia and elevated troponin along with concern for a LLL consolidation as well on imaging. She was started on empiric IV abx and admitted to medicine. However, overnight she had a large brown bowel movement
with small amount of bright red blood. Patient notes she's had painless, intermittent rectal bleeding in the past. Does note constipation while she was at rehab and occasional straining as well despite taking senna, miralax and suppositories.
Otherwise, she denied any abdominal pain or large volume bloody stools. No other NSAIDs and her a/c was currently held given her rectal bleeding. Also notes a recent colonoscopy which was reportedly unremarkable at [facility] [place] about one year ago (no
records regarding this). On exam, she was found to have a non-thrombosed hemorrhoid on exam and suspicious for hemorrhoidal related bleeding. She does note previous constipation but much less likely stercoral colitis and/or stercoral induced
ulceration versus AVMs. Much less likely diverticular hemorrhage given her bleeding. Doubt malignancy given her recent colonoscopy 1 year ago. Slight drift in Hgb but otherwise without further bloody bowel movements this AM with brown stool on exam.
Currently, her a/c is on hold and favor monitoring for 24 hrs while holding a/c in case of rebleeding while treating her underlying constipation. Will attempt to obtain a copy of her prior colonoscopy report at [facility]. Otherwise, patient prefers
to avoid a repeat colonoscopy at this time which is reasonable given her prior/recent colonoscopy, however would reconsider pending her clinical course. Favor conservative management and trending serial H/h while monitoring for signs of re-bleeding.
If evidence of large volume hematochezia, would consider stat CTA in attempts of localization if not related to hemorrhoidal bleed but again less likely. Agree with ongoing bowel regimen and Anusol suppositories PRN.
#Rectal Bleeding #BRBPR
#External Hemorrhoids
#Mild Anemia
#Constipation
#New onset A Fib (on a/c)
Recommendations:
- Diet as tolerated
- Hgb remains stable, would continue to trend with serial CBC
- No further episodes significant episodes of rectal bleeding and again suspect secondary to hemorrhoids
- Okay to resume a/c as per primary team/Cardiology
- No plans for a colonoscopy at this time given her recent colonoscopy last year which was reportedly normal
- Still advised her to follow-up with her primary GI at [facility] [place]
- Continue bowel regimen for treatment of constipation and anusol suppositories PRN
- Avoidance of all NSAIDs
- Notify GI if concern for large volume hematochezia or other concern for recurrent bleeding
- Rest of care as per primary team
Discussed with internal medicine team this AM. GI will sign-off, please re-contact with any questions or concerns.
Subjective
Subjective
Date of Service: August 30, 2025
- Hgb remains stable with Hgb 11.5 -> 10.8 - > 11.5
- Otherwise, no acute events overnight without further recurrent bleeding
Feeling well and resting comfortably, had one brown softer stool with trace amount of red blood with wiping. Otherwise, denies any blood clots or large volume hematochezia. Unable to obtain copy of prior colonoscopy report, however per patient this
was reportedly normal one year ago. Otherwise, continues to deny any abdominal pain or discomfort.
Objective
Data Reviewed
Laboratory Data:
Laboratory Results
08/30/25 04:38
08/30/25 04:38
Laboratory Results
PT 18.9 Sec (11.4-14.6) H 08/28/25 15:29
INR 1.56 08/28/25 15:29
APTT 92.5 Sec (23.4-35.0) H 08/30/25 04:38
Total Bilirubin 1.1 mg/dl (0.2-1.3) 08/28/25 13:53
AST 23 U/L (14-36) 08/28/25 13:53
ALT 21 U/L (0-35) 08/28/25 13:53
Alkaline Phosphatase 77 U/L (38-126) 08/28/25 13:53
Vital Signs and I&O:
Vital Signs
Temp Pulse Resp BP Pulse Ox
98.2 F 83 18 138/91 96
08/30/25 04:41 08/30/25 04:41 08/30/25 04:41 08/30/25 04:41 08/30/25 04:41
I&O
08/28/25 08/29/25 08/30/25
06:59 06:59 06:59
Intake Total 240 / 240 480 / 480
Output Total 300 / 300 600 / 600
Balance -60 / -60 -120 / -120
Physical Exam
Physical Exam
HEENT: Anicteric and Moist mucous membranes
Cardiology: Other (RR on tele)
Pulmonary: Other (Normal WOB on room air)
GI: Soft, Non Distended and Non Tender
Extremities: Warm
Neuro: Non Focal
[2025-08-30] MEDS: DITROPAN 5 MG PO (07:31)
[2025-08-30] MEDS: CARDIZEM CD 120 MG PO (07:31)
[2025-08-30] MEDS: SENOKOT 8.6 MG PO ×2 (07:31→20:16)
[2025-08-30] MEDS: VIBRAMYCIN 100 MG PO ×2 (07:31→20:16)
--- NOTE | 2025-08-30 11:01 | W.PN.CARDCBS ---
Addendum entered and electronically signed by Chintan Cristobal MD 08/30/25 15:03:
Attending addendum: Patient seen and examined. PA note reviewed and findings independently confirmed by me. Substernal chest pain with anterior wall motion abnormality by echocardiogram. Prior catheterization at [facility] notable for 30-40%
stenosis in the RCA. No other significant coronary disease was appreciated. We discussed treatment options including conservative management or invasive angiography. Given history of chest discomfort and new regional wall motion abnormality we
have elected to proceed with invasive angiography. The risks and benefits have been explained to the patient and she is in agreement.
Original Note:
Today's Communication / Plan
-
Continue IV heparin of for possible cardiac catheterization this afternoon
Give ASA 325 mg now
Continue diltiazem 120 mg daily
Will need eventual oral anticoagulation given new onset A-fib
Add on lipids to a.m. labs
Impression / Plan
-
PCP: Dr. Yosef Rios
Cardiology: Cardiology provider at [facility]
Impression:
Admitted with chest pain, palpitations and newly diagnosed A-fib 08/28/2025
Chest pain
Elevated troponin
Newly diagnosed paroxysmal atrial fibrillation 08/28/2025 with spontaneous conversion to SR 08/28/2025 late PM
LLL consolidation, possibly PNA
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
Nonobstructive CAD with 30 to 40% RCA lesion by cardiac cath at [facility] 12/18/2023
Lexiscan nuclear stress test 12/10/2023: Positive for ischemia with small to medium reversible defect in the apical to mid lateral locations, EF 71%
Cardiac cath 12/18/2023: [facility] study, noncritical stenosis in a nondominant RCA, 30 to 40% stenosis in the midportion of the RCA, LM free of angiographic disease, circumflex free of any angiographic disease, LAD free of any angiographic disease
Echo 08/29/2025: EF 44%. Mid anteroseptal, mid septal, mid anterior, and apical akinesis. Mild to moderate septal hypertrophy measuring 1.4 cm. Moderate to severe tricuspid regurgitation. Estimated pulmonary artery pressure of 47 mmHg assuming a
right atrial pressure of 15 mmHg.
Echo 12/05/2023: [facility] study, EF 60 to 65%, no WMA, normal RV size and function, mild to moderate MR
Plan:
-Admitted with chest pain, palpitations and newly diagnosed A-fib 08/28/2025
New onset atrial fibrillation with rapid ventricular response 08/28/2025
-This is new diagnosis. Patient spontaneously converted to SR with Cardizem gtt and has maintained sinus rhythm since. Cardizem drip transition to oral Cardizem 120 mg daily.
-TSH was normal at 0.99
-Patient has been maintained on heparin.
-Patient has history of external hemorrhoids. Minimal blood with bowel movements and wiping. Patient followed by GI at [facility]. She had colonoscopy in 2023 without acute findings. Patient was seen by GI this admission who recommended
patient may proceed with anticoagulation and follow-up with outpatient GI doctor.
Abnormal troponin, peaked on admission at 0.161 then trended downward.
-Symptoms of chest pain and palpitations improved dramatically with spontaneous conversion to SR, no recurrence of symptoms despite brief, self-limited paroxysms of atrial arrhythmia.
-Patient had an abnormal Lexiscan nuclear stress test 11/2023 followed by the finding of noncritical stenosis and a nondominant RCA on cardiac cath at [facility] 12/18/2023.
-EKG with presybeterian of sinus rhythm shows anterolateral T wave abnormality.
-Echocardiogram this admission showed reduced EF of 44% with new mid anteroseptal, mid septal, mid anterior and apical akinesis. There is also moderate to severe TR.
-Given new wall motion abnormality with reduced ejection fraction and abnormal troponin discussed proceeding with cardiac catheterization with patient prior to discharge. Would keep patient on IV heparin rather than starting anticoagulation at this
time. Patient reports if catheterization can be done today she would be willing to stay. However if catheterization is delayed she would like to be discharged and follow-up with her outpatient operating system designer at [facility]
-Give aspirin 325 mg x 1
-Add on lipids
Patient is being treated with Rocephin and doxycycline for a presumed pneumonia with the finding of a LLL consolidation on CT of the chest.
Plan discussed with patient, patient's [id number], nursing and hospitalist
[facility] 08/29/2025:
Patient came to [facility] ER yesterday with chest pain and palpitations and was admitted with newly diagnosed Afib with RVR and cardiology has been consulted. Patient had planned right TKA on 07/27/2025 and PT evaluation prior to discharge to home
indicated that she required a rehab stay so she was transferred to the [facility] and has been there since approximately 08/01/2025. Patient reports that she had been making progress, but that progress slowed over the last week, she is only able to walk
200 steps at a time. Patient had 2 episodes over the last week of fleeting chest pressure and palpitations and then after a PT session yesterday she had chest pain, SOB and racing heart palpitations that prompted ER evaluation. Patient was found
to be newly diagnosed atrial fibrillation with RVR and was started on Cardizem gtt. patient spontaneously converted to SR late last night and remains in SR this morning, but is having episodes of 10-12 beats of atrial arrhythmia that seem to be
asymptomatic during my observation of telemetry at the time of cardiology consultation. No known history of A-fib. Patient was taking Eliquis 2.5 mg BID following surgery for DVT prophylaxis, but otherwise has not been on OAC. Patient has a
history of bright red blood per rectum due to fissures and hemorrhoids, her last colonoscopy was at [facility] a year ago and she noticed some blood in the toilet intermittently over the last week at rehab related to constipation and because of this
heparin gtt was not started overnight.
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
Subjective
Date of Service: August 30, 2025
Patient seen and examined. Patient lying in bed comfortably. Currently denies chest pain or shortness of breath. No reoccurrence of palpitations.
Objective
Labs:
08/30/25 04:38
08/30/25 04:38
Labs
Hgb 11.5 g/dL (12.0-16.0) L 08/30/25 04:38
Hct 34.5 % (37.0-47.0) L 08/30/25 04:38
Plt Count 398 10^3/uL (130-400) D 08/30/25 04:38
PT 18.9 Sec (11.4-14.6) H 08/28/25 15:29
INR 1.56 08/28/25 15:29
APTT 92.5 Sec (23.4-35.0) H 08/30/25 04:38
Sodium 132 mmol/L (135-145) L 08/30/25 04:38
Potassium 3.8 mmol/L (3.5-5.1) 08/30/25 04:38
BUN 16 mg/dl (7-17) 08/30/25 04:38
Creatinine 0.6 mg/dL (0.6-1.0) 08/30/25 04:38
Glucose 99 mg/dl (70-99) 08/30/25 04:38
Troponins
08/28/25 08/29/25 08/29/25
13:53 03:25 11:15
Troponin I 0.161 H* 0.153 H* 0.123 H*
08/29/25
18:45
Troponin I Cancelled
Vital Signs and I&O:
Vital Signs
Temp Pulse Resp BP Pulse Ox
98.8 F 82 18 137/87 97
08/30/25 07:32 08/30/25 07:31 08/30/25 07:32 08/30/25 07:31 08/30/25 07:32
Vital Signs
Temp Pulse Resp BP Pulse Ox
98.8 F 82 18 137/87 97
08/30/25 07:32 08/30/25 07:31 08/30/25 07:32 08/30/25 07:31 08/30/25 07:32
Intake & Output
08/28/25 08/29/25 08/30/25 08/31/25
06:59 06:59 06:59 06:59
Intake Total 240 / 240 570 / 570
Output Total 300 / 300 900 / 900 500 / 500
Balance -60 / -60 -330 / -330 -500 / -500
Physical Exam
Physical Exam
GEN: No distress, awake, Ox3
HEENT: supple, anicteric, mmm
LUNGS: CTA, no wheezes/rales
CV: Reg, S1/S2, 1/6 syst LSB murmur
ABD: soft, BS+, NT/ND
EXT: No edema, clubbing or cyanosis
NEURO: Gross non-focal
SKIN: No rash, warm, dry, pink
[2025-08-30] MEDS: ELIQUIS PO (11:02)
--- NOTE | 2025-08-30 11:03 | PTCARENOTE ---
Heparin drip to continue as pt may decide to get heart cath later in shift per Diana Sanders from cards, hold po eliquis at the moment. MD Villa made aware of updated plan of care. plan of care continues to be followed.
--- NOTE | 2025-08-30 11:15 | CM ---
Chart reviewed. Patient is independent of ADLS, recently had a R TKR at [facility] 07/22/25 and was discharged to [facility], ambulating with a RW. Prior to that patient was independent of ADLS, living alone in a 1 STH, 5 TITO in the front,
4 TITO in the back, grab bars, RW and SPC at home if needed. Patient does not want to go back to [facility]. Patient prefers to go home. Patient's stepdaughter working on finding patient helpers to assist in the home. PT evaluation
recommending SNF. Patient currently refusing. Patient said she doesn't feel dizzy today and will have helpers to assist her at home. Spoke to OT to express concerns and wishes. CM to follow
[2025-08-30 11:24] LABS: APTT 81.1 Sec (23.4-35.0)
[2025-08-30] MEDS: ASPIRIN 325 MG PO (11:42)
[2025-08-30] MEDS: HEPARIN 25000 UNITS/250 ML IV (12:31)
[2025-08-30 13:19] LABS: HDL Cholesterol 37 mg/dl; LDL Cholesterol, Calculated 95 mg/dl; Very Low Density Lipoprotein 27 mg/dl (0-30)
[2025-08-30 14:36] LABS: Glycohemoglobin (HgbA1c) 5.5 % (4.0-5.9)
--- NOTE | 2025-08-30 15:15 | W.PN.HOSP.TC ---
Today's Communication/Plan
-
Assessment / Plan
Assessment / Plan
General: No Apparent Distress, Comfortable and Conversant
HEENT: NormoCephalic, Moist mucous membranes, Atraumatic
Respiratory: Clear and Non Labored Respirations
Cardiac: Regular rhythm, heart rate around 80
GI: Soft, Non Tender, Non Distended and Normal Bowel Sounds
Musculoskeletal: No Edema, no deformity
Skin: Warm and dry
: NO Vera
Neuro: Awake, Alert, Nonfocal/grossly intact
Psych: Calm and cooperative
Ms. Kessler is a 80-year-old female with a medical history of hypertension, hemorrhoid, and recent right TKA (07/22/2025, low-dose Eliquis for PPx) who presented with chest pain and shortness of breath. She was found to be in A-fib with RVR which
is a new diagnosis for her. Her heart rate improved with IV Cardizem and ultimately converted to normal sinus rhythm overnight. She was started on full anticoagulation with IV heparin, low-dose postoperative Eliquis was discontinued. Overnight
after admission she developed painless hematochezia and IV heparin was briefly held. Her rectal bleeding is likely due to her known hemorrhoids and has spontaneously resolved. CT imaging showed evidence of left lower lobe pneumonia. Started on
antibiotics. Admitted for further evaluation and management.
A-fib with RVR:
- New diagnosis of A-fib
- Started on IV diltiazem drip, spontaneously converted to normal sinus rhythm, diltiazem drip now discontinued
- Continue scheduled diltiazem 120 mg p.o. daily
- Echocardiogram showed newly reduced ejection fraction of 44% with anterior wall motion abnormality
- Planning coronary angiography during this admission
- Currently anticoagulated with IV heparin, plan to transition to full-strength Eliquis after coronary angiography
- Cardiology following
Rectal bleeding:
- Likely due to hemorrhoid, spontaneously resolved, hemoglobin stable
- Okay to continue anticoagulation
- GI signed off, no intervention indicated at this time
- If recurrent large-volume bleeding will pursue CT angiography
Left lower lobe pneumonia:
- CT imaging shows dense consolidation left lower lobe
- Started on antibiotics with ceftriaxone and doxycycline
- Blood cultures growing coagulase-negative staph, repeat cultures sterile so far, likely contaminant
- Saturating appropriate on room air
- Will check Legionella urinary antigen
Hyponatremia:
- Mild, will monitor
DVT prophylaxis: IV heparin
CODE STATUS: Full code
Anticipated Discharge: 24 - 48 hours
Subjective/Interval History
-
Date of Service: August 30, 2025
Patient was seen and examined at bedside this morning. No acute events overnight. Feeling well.
Objective Data
-
Labs:
Laboratory Results
08/30/25 08/30/25
04:38 11:00
WBC 11.1 H
Hgb 11.5 L
Hct 34.5 L
Plt Count 398 D
APTT 92.5 H 81.1 H
Sodium 132 L
Potassium 3.8
Chloride 104
Carbon Dioxide 24
BUN 16
Creatinine 0.6
Glucose 99
Calcium 9.3
Vital Signs:
Vital Signs
Temp Pulse Resp BP Pulse Ox
98.1 F 81 17 137/74 97
08/30/25 14:37 08/30/25 14:37 08/30/25 14:37 08/30/25 14:37 08/30/25 14:37
I&O
08/29/25 08/30/25 08/31/25
06:59 06:59 06:59
Intake Total 240 / 240 570 / 570 89.3 / 89.3
Output Total 300 / 300 900 / 900 825 / 825
Balance -60 / -60 -330 / -330 -735.7 / -735.7
Review of Systems
-
History Source: Patient
All other systems: Reviewed and negative
Physical Exam
-
General: No Apparent Distress
--- NOTE | 2025-08-30 15:55 | ITS.CL.CATH ---
[facility] - Catheterization
Cardiac Catheterization
Procedure Report:
LEFT HEART CATHETERIZATION
Date of Procedure: August 30, 2025
Referring: Dr. Quinten Alvarado
PROCEDURES:
1. Left heart catheterization with coronary and single-plane left ventriculography
INDICATION: This is an 80-year-old female who had right knee replacement on 07/27/2025 and was at [facility] for rehab services when she noticed the onset of palpitations and substernal chest pressure. She was referred to
[facility] and found to be in new onset atrial fibrillation with rapid ventricular response and was started on IV Cardizem drip. She spontaneously converted to normal sinus rhythm. Her troponin peaked at 0.161 ng/mL on admission and
trended lower. Her echocardiogram was notable for an anterior wall motion abnormality and she is now referred for coronary angiography.
ACCESS: Right radial artery, 6 Iranian sheath using ultrasound guidance. A baby J-wire was required to pass tortuosity in the forearm. The wire was advanced to the ascending aorta and catheter manipulation was smooth for the remainder of the
procedure
HEMODYNAMICS : (mmHg)
AO (s/d) : 130/71, 97
LV (s/d) : 135/9
LVEDP : 21
CORONARY FINDINGS
DOMINANCE: Left
LEFT MAIN: Normal
LEFT ANTERIOR DESCENDING: The LAD arises normally from the left main and runs the anterior interventricular groove. The LAD has minor irregularities over its course but no focal obstructive stenosis. The distal LAD wraps completely around the apex
and supplies a significant portion of the inferior wall. A moderate-sized first diagonal branch arises very proximally from the LAD and has a 60% stenosis at its origin.
CIRCUMFLEX: The circumflex is a large-caliber dominant vessel supplying a small OM1 and bifurcating OM 2. The AV continuation of the circumflex terminates in a small PDA (much of the inferior wall is supplied by a wraparound LAD)
RIGHT CORONARY ARTERY: Moderate caliber nondominant vessel with 40% mid stenosis
VENTRICULOGRAPHY: Left ventriculography was performed in an BROWN projection. The digital single-plane left ventricular ejection fraction is estimated at 45% with mid to distal anterior and apical hypokinesis
SEDATION: 33 minutes of procedural sedation was utilized. An independent medical record librarians teacher was present to assist with and help manage the patient's level of consciousness and physiologic status.
RADIATION SUMMARY: Fluoro Time (min): 4.5, Dose (mGy): 229, DAP (Gy.cm2) : 22.6
Closure Device: TR band
CONCLUSIONS
1. Moderate coronary atherosclerosis in nondominant RCA.
2. The LAD has only mild luminal irregularities with no focal obstructive stenosis. The LAD does wrap completely around the apex
3. 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
RECOMMENDATIONS
1. Change Cardizem CD to Toprol XL 50mg po bid
2. Start Eliquis 5mg po bid tonight.
3. Will followup with regular PCP
Copy to: Dr. Yosef Rios
[2025-08-30] MEDS: NSS 1000 IV (16:05)
[2025-08-30] MEDS: TOPROL XL 50 MG PO (20:15)
[2025-08-30] MEDS: ROCEPHIN 1000 MG IV (20:16)
[2025-08-30] MEDS: STERILE WATER FOR INJECTION 10 ML IV (20:16)
[2025-08-30] MEDS: TYLENOL 650 MG PO (22:48)
--- NOTE | 2025-08-30 23:14 | PTCARENOTE ---
Addendum entered by Bette Harrell RN 08/30/25 23:16:
pt c/o 01/20 aching in b/l legs and requesting Tylenol. Administered per pt request--see DEC.
Original Note:
Received pt at change of shift resting in bed. SR on tele, HR 60's-70's. pt denies any CP or SOB at this time. R radial site C/D/I, no bleeding or hematoma noted at this time. pt educated on activity restrictions. U/A obtained and sent to lab. pt
wearing own CPAP for HS. Updated pt on plan of care. Encouraged pt to call RN for assistance ambulating and/or with any questions or concerns. Call nelson within reach.
--- NOTE | 2025-08-31 02:58 | DOWNTIME ---
There was a Integrity Tracking Client Care Taker Downtime on 08/31/2025 from 0100 to 08/31/2025 at 0255. Downtime documentation of patient's care, including medication administrations, has been reconciled in the electronic record per guidelines. Refer to the
patient's paper chart under the miscellaneous tab to see printed paper medication records and downtime forms.
[2025-08-31 04:43] VITALS: BP 130/81
[2025-08-31 05:06] VITALS: BMI 25.7
[2025-08-31 05:14] LABS: Hematocrit 30.4 % (37.0-47.0); Hemoglobin 9.9 g/dL (12.0-16.0); Mean Corp Hgb Conc. 32.6 g/dL (33.0-37.0); Mean Corpuscular Volume 90.7 fL (81.0-99.0); Platelet Count 378 10^3/uL (130-400); Red Cell Dist. Width 15.1 % (11.5-14.5)
[2025-08-31 05:24] LABS: Blood Urea Nitrogen 15 mg/dl (7-17); Calcium 9.2 mg/dl (8.4-10.2); Carbon Dioxide 25 mmol/L (22-30); Chloride 107 mmol/L (98-107); Estimated Creatinine Clearance 70 ml/min; Glucose 93 mg/dl (70-99); Potassium 3.9 mmol/L (3.5-5.1); Sodium 134 mmol/L (135-145); eGFR > 60.00
[2025-08-31 06:19] LABS: Nucleated Red Blood Cells % 0 %
[2025-08-31 08:15] VITALS: BP 126/81
[2025-08-31] MEDS: VIBRAMYCIN 100 MG PO (08:50)
[2025-08-31] MEDS: SENOKOT 8.6 MG PO (08:50)
[2025-08-31] MEDS: TOPROL XL 50 MG PO (08:50)
[2025-08-31] MEDS: ELIQUIS 5 MG PO (08:51)
[2025-08-31] MEDS: DITROPAN 5 MG PO (08:51)
--- NOTE | 2025-08-31 09:24 | W.PN.CARDCBS ---
Today's Communication / Plan
-
Add lisinopril for reduced ejection fraction
Continue Toprol and treat as Takotsubo
Remains in sinus rhythm and will continue Eliquis
Updated primary service
Impression / Plan
-
PCP: Dr. Yosef Rios
Cardiology: Cardiology provider at [facility]
Impression:
Admitted with chest pain, palpitations and newly diagnosed A-fib 08/28/2025
Chest pain
Elevated troponin
Newly diagnosed paroxysmal atrial fibrillation 08/28/2025 with spontaneous conversion to SR 08/28/2025 late PM
LLL consolidation, possibly PNA
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
Nonobstructive CAD with 30 to 40% RCA lesion by cardiac cath at [facility] 12/18/2023
Lexiscan nuclear stress test 12/10/2023: Positive for ischemia with small to medium reversible defect in the apical to mid lateral locations, EF 71%
Cardiac cath 12/18/2023: [facility] study, noncritical stenosis in a nondominant RCA, 30 to 40% stenosis in the midportion of the RCA, LM free of angiographic disease, circumflex free of any angiographic disease, LAD free of any angiographic disease
Echo 08/29/2025: EF 44%. Mid anteroseptal, mid septal, mid anterior, and apical akinesis. Mild to moderate septal hypertrophy measuring 1.4 cm. Moderate to severe tricuspid regurgitation. Estimated pulmonary artery pressure of 47 mmHg assuming a
right atrial pressure of 15 mmHg.
Echo 12/05/2023: [facility] study, EF 60 to 65%, no WMA, normal RV size and function, mild to moderate MR
Catheterization 08/30/2025 CONCLUSIONS
1. Moderate coronary atherosclerosis in nondominant RCA.
2. The LAD has only mild luminal irregularities with no focal obstructive stenosis. The LAD does wrap completely around the apex
3. 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
Plan:
Catheterization 08/30/2025 with no significant CAD
Will treat as Takotsubo
Continue Toprol and will add lisinopril
Remains in sinus rhythm
Continue Eliquis
Stable cardiology status for discharge if able to ambulate as patient was in the rehab unit prior to admission recovering from knee surgery
Discussed with primary service
She will follow-up with cardiology at [facility]
Patient is being treated with Rocephin and doxycycline for a presumed pneumonia with the finding of a LLL consolidation on CT of the chest.
Plan discussed with patient's stepmother by phone
[facility] 08/29/2025:
Patient came to [facility] ER yesterday with chest pain and palpitations and was admitted with newly diagnosed Afib with RVR and cardiology has been consulted. Patient had planned right TKA on 07/27/2025 and PT evaluation prior to discharge to home
indicated that she required a rehab stay so she was transferred to the [facility] and has been there since approximately 08/01/2025. Patient reports that she had been making progress, but that progress slowed over the last week, she is only able to walk
200 steps at a time. Patient had 2 episodes over the last week of fleeting chest pressure and palpitations and then after a PT session yesterday she had chest pain, SOB and racing heart palpitations that prompted ER evaluation. Patient was found
to be newly diagnosed atrial fibrillation with RVR and was started on Cardizem gtt. patient spontaneously converted to SR late last night and remains in SR this morning, but is having episodes of 10-12 beats of atrial arrhythmia that seem to be
asymptomatic during my observation of telemetry at the time of cardiology consultation. No known history of A-fib. Patient was taking Eliquis 2.5 mg BID following surgery for DVT prophylaxis, but otherwise has not been on OAC. Patient has a
history of bright red blood per rectum due to fissures and hemorrhoids, her last colonoscopy was at [facility] a year ago and she noticed some blood in the toilet intermittently over the last week at rehab related to constipation and because of this
heparin gtt was not started overnight.
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
Subjective
Date of Service: August 31, 2025
No chest pain or shortness of breath
Objective
Labs:
08/31/25 04:52
08/31/25 04:52
Labs
Hgb 9.9 g/dL (12.0-16.0) L 08/31/25 04:52
Hct 30.4 % (37.0-47.0) L 08/31/25 04:52
Plt Count 378 10^3/uL (130-400) 08/31/25 04:52
PT 18.9 Sec (11.4-14.6) H 08/28/25 15:29
INR 1.56 08/28/25 15:29
APTT 81.1 Sec (23.4-35.0) H 08/30/25 11:00
Sodium 134 mmol/L (135-145) L 08/31/25 04:52
Potassium 3.9 mmol/L (3.5-5.1) 08/31/25 04:52
BUN 15 mg/dl (7-17) 08/31/25 04:52
Creatinine 0.6 mg/dL (0.6-1.0) 08/31/25 04:52
Glucose 93 mg/dl (70-99) 08/31/25 04:52
Troponins
08/28/25 08/29/25 08/29/25
13:53 03:25 11:15
Troponin I 0.161 H* 0.153 H* 0.123 H*
08/29/25
18:45
Troponin I Cancelled
Vital Signs and I&O:
Vital Signs
Temp Pulse Resp BP Pulse Ox
98.5 F 74 18 126/81 97
08/31/25 08:23 08/31/25 08:50 08/31/25 08:23 08/31/25 08:50 08/31/25 08:23
Vital Signs
Temp Pulse Resp BP Pulse Ox
98.5 F 74 18 126/81 97
08/31/25 08:23 08/31/25 08:50 08/31/25 08:23 08/31/25 08:50 08/31/25 08:23
Intake & Output
08/29/25 08/30/25 08/31/25 09/01/25
06:59 06:59 06:59 06:59
Intake Total 240 / 240 570 / 570 1299.3 / 1299.3
Output Total 300 / 300 900 / 900 1625 / 1625
Balance -60 / -60 -330 / -330 -325.7 / -325.7
Physical Exam
Physical Exam
General: Well developed, well nourished in NAD.
Neck: Supple, no JVD, HJR, carotids +2 B/L, no bruits bilaterally.
Heart: Non displaced PMI, RRR, no murmurs, No S3, S4, no rubs.
Lungs: Clear to auscultation bilaterally, no wheeze, rhonchi, rubs bilaterally,
normal expiratory phase.
Extremities: No clubbing, cyanosis or edema bilaterally.
Neuro: Grossly nonfocal, awake, alert and oriented x3.
[2025-08-31] MEDS: ZESTRIL 5 MG PO (10:45)
[2025-08-31 10:46] VITALS: BP 119/68
--- NOTE | 2025-08-31 11:15 | CM ---
Chart reviewed. Patient is independent of ADLS, lives alone in a 1 STH, 5 TITO in the front, grab bars and railing, ambulates with a RW and also has a SPC. Patient doing much better. PT recommending Home with VN. Referral sent to [facility]
at Home [facility]. Plan is for the patient to return home with [facility]. CM to follow
[2025-08-31 11:32] VITALS: BP 116/72
--- NOTE | 2025-08-31 12:13 | W.DCSUMMARY ---
Discharge Summary
Discharge Data
Date of Admission: 08/28/25
Date of Discharge: 08/31/25
Total time spent discharging patient (in min): 55
-
Pending Results: No
Hospital Course
Ms. Kessler is a 80-year-old female with a medical history of hypertension, hemorrhoid, and recent right TKA (07/22/2025, low-dose Eliquis for PPx) who presented with chest pain and shortness of breath. She was found to be in A-fib with RVR which
is a new diagnosis for her. Her heart rate improved with IV Cardizem and ultimately converted to normal sinus rhythm. She was started on full anticoagulation with IV heparin, low-dose postoperative Eliquis was discontinued. Overnight after
admission she developed painless hematochezia and IV heparin was briefly held. Her rectal bleeding is likely due to her known hemorrhoids and spontaneously resolved. Hemoglobin levels remained stable. CT imaging showed evidence of left lower lobe
pneumonia. She was started on antibiotics and admitted for further evaluation and management.
Echocardiogram showed newly reduced ejection fraction of 44% with anterior wall motion abnormality. She was brought for coronary angiography on 08/30/2025 with no significant obstructive disease identified. Cardiology felt the findings were
consistent with Takotsubo's cardiomyopathy. Her calcium channel tyree was discontinued and she was started on beta-blockade with metoprolol succinate. She was also started on low-dose lisinopril for afterload reduction. She was transitioned to
oral anticoagulation with full dose Eliquis which she will continue indefinitely. She was discharged home with 2 more days of oral antibiotics to complete a 5-day course for left lower lobe pneumonia. Her first set of blood cultures resulted
positive for coagulase-negative staph in 1 out of 4 bottles. Discussed with infectious disease team who agreed that this is likely a contaminant. Repeat cultures have remained sterile. She had a mild hyponatremia which improved throughout
admission with a serum sodium of 134 on the day of discharge. Her heart rate and blood pressure have been stable on her current regimen. She will need to follow-up closely with her primary care physician and with cardiology in the outpatient
office for further evaluation and medication adjustments as needed.
General: No Apparent Distress, Comfortable and Conversant
HEENT: NormoCephalic, Moist mucous membranes, Atraumatic
Respiratory: Clear and Non Labored Respirations
Cardiac: Regular rhythm, heart rate around 70
GI: Soft, Non Tender, Non Distended and Normal Bowel Sounds
Musculoskeletal: No Edema, no deformity
Skin: Warm and dry
: NO Vera
Neuro: Awake, Alert, Nonfocal/grossly intact
Psych: Calm and cooperative
Discharge Plan
-
Patient Disposition: Home with Home Care
Discharge Diagnosis/Procedures: Cardiac catheterization, new onset A-fib, acute HFrEF
Driving Restrictions: No driving for 24 hours
Activity Restrictions/Additional Instructions:
You were admitted for evaluation of chest pain and shortness of breath. You were found to have a cardiac arrhythmia called atrial fibrillation initially with an associated rapid heart rate. You were started on medications to control your heart
rate. You were also started on a blood thinning medication (an anticoagulant called apixaban, brand-name Eliquis) which is used for stroke prevention in people who have atrial fibrillation. Your arrhythmia spontaneously resolved back to normal
sinus rhythm. An echocardiogram (ultrasound of your heart) showed decreased squeezing function of your left ventricle and abnormalities in the motion of the anterior part of your heart muscle. You were brought in for coronary angiography to look
at the blood vessels feeding your heart muscle and no significant blockages were found. You were started on some medications to help your heart muscle recover and to help control your heart rate. You will need to follow-up closely with your
primary care physician and with the music industry intern in the outpatient office for ongoing monitoring and medication adjustments as needed. You were also started on antibiotics for a possible left lower lobe pneumonia and will be discharged home with a
prescription for oral antibiotics to complete a total 5-day course.
Stand Alone Forms: DC Instructions- Cath/EP Lab
Referrals:
[facility]N [Other]
Referral Note: FAX [phone]
Arvin Yoon MD [Family Provider]
Prescriptions:
New
doxycycline hyclate 100 mg Capsule
100 mg PO Q12 2 Days Qty: 4 0RF
metoprolol succinate 50 mg Tablet Extended Release 24 Hr
50 mg PO BID 30 Days Qty: 60 0RF
lisinopril 5 mg Tablet
5 mg PO DAILY 30 Days Qty: 30 0RF
Eliquis 5 mg Tablet
5 mg PO BID 90 Days Qty: 180 0RF
Continued
methocarbamol 500 mg Tablet
500 mg PO Q8H PRN (Reason: muscle spasms)
sennosides [senna] 8.6 mg Tablet
8.6 mg PO BID
polyethylene glycol 3350 17 gram Powder In Packet
17 g PO DAILY PRN (Reason: constipation)
acetaminophen 500 mg Tablet
1,000 mg PO TID
bisacodyl [Dulcolax (bisacodyl)] 10 mg Suppository
10 mg TX DAILY PRN (Reason: constipation)
oxybutynin chloride 5 mg Tablet
5 mg PO DAILY
oxycodone 5 mg Tablet
5 mg PO Q4H PRN (Reason: pain)
Discontinued
nitrofurantoin monohyd/m-cryst [Macrobid] 100 mg Capsule
100 mg PO BID
Patient Comments:
for uti for 5 days started on 08/25/25
Eliquis 2.5 mg Tablet
2.5 mg PO BID
Rx Instructions:
for CAD for 42 days started on 08/01/25
Discharge Orders:
Discharge Patient (As Directed); Ordered 08/31/25
Ordered By: Matthew Villa
Care Plan Goals
Care Plan Goals:
Problem: Readiness for enhanced knowledge related to diagnosis and treatment plan
Goal: Understand your diagnosis and treatment plan needs, including medications if applicable.
Instructions: Know your diagnosis, underlying causes and treatment plan options, including medications if applicable. Consult with your health care team to learn about your diagnosis and treatment plan, including medications if applicable.
Discharge Date and Time
Print Language: PANAMANIAN
[2025-08-31] MEDS: TYLENOL 650 MG PO (12:45)
--- NOTE | 2025-08-31 13:15 | PTCARENOTE ---
~[id number]: Handoff report reveived from nightshift RN. Pt AOx4, NSr 1st [id number], SBP 110s-120s, RA satting 97%. Pt c/o R knee pain but refuses tylenol at this time. Educated patient on importance of staying on top of pain. Ax1 walker to
bathroom. R radial site CDI. R knee approximated with surgical adhesive. B/L thigh high compression stockings present, skin intact. Patient re-educated on R wrist restrictions post cath. Lisinopril added to medications, medication education
provided. All needs met at this time, call nelson within reach.
~[id number]: DC orders received, preferred pharmaxy placed in chart. PRN ylenol given for knee pain per patient request. Tele box and PIV removed. Patient belongings including CPAP and images/ test results sent with the patient. DC paperwork
reviewed with patient and all questions answered to the best of my ability. Patient taken to lobby via wheelchair with PCT in stable condition.
== END 2025-08-31 13:58 | disposition home health service (06) | DRG 286 ==
LOC: IVU 18:24
PROVIDERS: Emergency Medicine; Internal Medicine Interventional Cardiology; Physician Assistant Medical; Registered Nurse; ADMITTING PHYSICIAN Internal Medicine; ATTENDING PHYSICIAN Internal Medicine; CONSULT PHYSICIAN Internal Medicine Cardiovascular Disease; CONSULT PHYSICIAN Student in an Organized Health Care Education/Training Program; EMERGENCY PHYSICIAN Emergency Medicine; FAMILY PHYSICIAN Internal Medicine
PROC: 4A023N7 Measurement of Cardiac Sampling and Pressure, Left Heart, Percutaneous Approach (ICD-10-PCS; 2025-08-30)
PROC: B2151ZZ Fluoroscopy of Left Heart using Low Osmolar Contrast (ICD-10-PCS; 2025-08-30)
PROC: B2111ZZ Fluoroscopy of Multiple Coronary Arteries using Low Osmolar Contrast (ICD-10-PCS; 2025-08-30)
DX: I48.0 Paroxysmal atrial fibrillation (principal); I50.21 Acute systolic (congestive) heart failure; J18.9 Pneumonia, unspecified organism; K90.41 Non-celiac gluten sensitivity; E87.1 Hypo-osmolality and hyponatremia; I11.0 Hypertensive heart disease with heart failure; K64.9 Unspecified hemorrhoids; D64.9 Anemia, unspecified; I25.10 Atherosclerotic heart disease of native coronary artery without angina pectoris; Z11.52 Encounter for screening for COVID-19; Z79.01 Long term (current) use of anticoagulants; Z79.899 Other long term (current) drug therapy; Z87.891 Personal history of nicotine dependence
CPT/HCPCS: 71045; 71275; 80048; 80053; 80061; 81003; 81015; 83036; 83935; 84300; 84443; 84484; 85014; 85018; 85025; 85027; 85379; 85610; 85730; 87040; 87086; 87154; 87205; 87449; 87502; 87811; 93005; 93306; 93458; 93971; 94660; 96374; 96376; 97116; 97163; 97166; 97530; 99152; 99153; 99291; C1769; C1894; Q9967